=== PATIENT | female | born 1975 | race African-American/Black ===

== ENCOUNTER 2017-09-06 23:45 | Emergency (ER) | payer SELFPAY ==
[~2017-09-06] VITALS: Ht 167.6 cm; Wt 105.2 kg
[2017-09-06 23:45] VITALS: BP 147/86
--- NOTE | 2017-09-06 23:45 | NUR ---
ASSUMED CARE OF PT AT THIS TIME. PT BIB [facility] FOR PREBOOK. PT DENIES ANY MEDICAL COMPLAINTS AT THIS TIME. AAOX4 WITH EVEN AND STEADY GAIT; PATIENT STATES PAIN OF 0/10; VSS; PATIENT POSITIONED FOR COMFORT; HOB ELEVATED; BEDRAILS UP X2; BED DOWN. ER MD MADE AWARE OF PT STATUS. WILL CONTINUE TO MONITOR.
[2017-09-07] MEDS ORDERED: QUEtiapine FUMARATE 100 MG TAB PO ONE (00:40)
[2017-09-07] MEDS ORDERED: QUEtiapine FUMARATE 100 MG TAB ONE (00:54)
[2017-09-07 01:05] VITALS: BP 138/82
--- NOTE | 2017-09-07 01:05 | NUR ---
PATIENT EXAMINED BY DR. BERRY. PATIENT MEDICALLY CLEARED AND RELEASED IN CUSTODY IN STABLE CONDITION. ORIGINAL PRE-BOOK FORM GIVEN TO OFFICER VICKIE. Patient discharged with v/s stable. Written and verbal after care instructions given and explained. Patient alert, oriented and verbalized understanding of instructions. Ambulatory with steady gait. All questions addressed prior to discharge. ID band removed. Patient advised to follow up with PMD. Rx of SEROQUEL given. Patient educated on indication of medication including possible reaction and side effects. Opportunity to ask questions provided and answered.
== END 2017-09-07 01:05 | disposition home or self-care (01) ==
LOC: MED 23:45
DX: Z02.89 Encounter for other administrative examinations (principal); F31.9 Bipolar disorder, unspecified; F20.9 Schizophrenia, unspecified; Z88.1 Allergy status to other antibiotic agents
CPT/HCPCS: 99283